=== PATIENT | male | born 1985 | race Caucasian/White ===

== ENCOUNTER 2020-07-19 21:44 | Emergency (ER) | payer OTHER ==
[2020-07-19 21:51] VITALS: BP 118/71; PULSE 60; TEMP 97.8; BMI 27.8
--- OUTSIDE RECORDS SUMMARY | 2020-07-19 22:27 | XMS ---
:1985 Author Organization [facility] Support Name Relationship Address Phone SAMIA HERNANDEZ Unavailable [place] [address] [place] [address] [place] [address] Re-disclosure Warning The records that you are about to access may contain information from federally- assisted alcohol or drug abuse programs. If such information is present, then the following federally mandated warning applies: This information has been disclosed to you from records protected by federal confidentiality rules (42 CFR part 2). The federal rules prohibit you from making any further disclosure of this information unless further disclosure is expressly permitted by the written consent of the person to whom it pertains or as otherwise permitted by 42 CFR part 2. A general authorization for the release of medical or other information is NOT sufficient for this purpose. The Federal rules restrict any use of the information to criminally investigate or prosecute any alcohol or drug abuse patient.The records that you are about to access may contain highly sensitive health information, the redisclosure of which is protected by Article 27-F of the [facility] Public Health law. If you continue you may haveaccess to information: Regarding HIV / AIDS; Provided by facilities licensed or operated by the [facility] Office of Mental Health; or Provided by the [facility] Office for People With Developmental Disabilities. If such information is present, then the following [facility] mandated warning applies: This information has been disclosed to you from confidential records which are protected by state law. State law prohibits you from making any further disclosure of this information without the specific written consent of the person to whom it pertains, or as otherwise permitted by law. Any unauthorized further disclosure in violation of state law may result in a fine or custodial sentence or both. A general authorization for the release of medical or other information is NOT sufficient authorization for further disclosure. Insurance Providers Payer name Policy type Policy ID Covered Covered democrat's Policy P jose / Coverage democrat ID relationship to [employer] Inf ormation type [employer] [id number] SP [id number] FIRST
--- NOTE | 2020-07-19 22:48 | PDOC ---
History of Present Illness - General Chief Complaint: Injury Stated Complaint: L THUMB LACERATION History Source: Patient Exam Limitations: No Limitations - History of Present Illness Initial Comments: 07/19/20 22:43 Patient is a 34-year-old male with history of tonsillectomy here with complaints of a laceration to his left thumb when he sliced himself with a sharp knife about 2039 today. States it would not stop bleeding and so he has come to the emergency room for evaluation. Tetanus is up-to-date. PMHX: as above PSOCHX: neg etoh, drug, cig ALL: NKDA GENERAL/CONSTITUTIONAL: [No fever or chills. No weakness. No weight change.] HEAD, EYES, EARS, NOSE AND THROAT: [No change in vision. No ear pain or discharge. No sore throat.] MUSCULOSKELETAL: [No joint or muscle swelling or pain. No neck or back pain.] SKIN AND BREASTS: [No rash or easy bruising.] NEUROLOGIC: [No headache, vertigo, loss of consciousness, or loss of sensation.] HEMATOLOGIC/LYMPHATIC: [No anemia, easy bleeding, or history of blood clots.] ALLERGIC/IMMUNOLOGIC: [No hives or skin allergy. No latex allergy.] GENERAL: [The patient is awake, alert, and fully oriented, in no acute distress.] HEAD: [Normal with no signs of trauma.] EXTREMITIES: [Normal range of motion of the left thumb, 2 cm laceration to the dorsal aspect of the left thumb, no tendon involvement, ] NEUROLOGICAL: [Cranial nerves II through XII grossly intact. Normal speech, normal gait.] PSYCH: [Normal mood, normal affect.] SKIN: [2 cm laceration left thumb, warm, Dry, normal turgor, no rashes or lesions noted.] Past History - Medical History Allergies/Adverse Reactions: Allergies Allergy/AdvReac Type Severity Reaction Status Date / Time No Known Allergies Allergy Verified 07/19/20 21:52 COPD: No - Psycho-Social/Smoking History Smoking History: Never smoked - Substance Abuse Hx (Audit-C & DAST Scrn) How often the patient has a drink containing alcohol: Never Score: In Men: 4 or > Positive; In Women: 3 or > Positive: 0 Screen Result (Pos requires Nsg. Audit-10AR): Negative In the last yr the pt used illegal drug/Rx for NonMed reason: No Score: Yes response is considered Positive: 0 Screen Result (Positive result requires Nsg. DAST-10): Negative *Physical Exam - Vital Signs Last Vital Signs Temp Pulse Resp BP Pulse Ox 97.8 F 60 19 118/71 100 07/19/20 21:48 07/19/20 21:48 07/19/20 21:48 07/19/20 21:48 07/19/20 21:48 Medical Decision Making - Medical Decision Making 07/19/20 22:43 Patient is a 34-year-old male with history of tonsillectomy here with complaints of a laceration to his left thumb when he sliced himself with a sharp knife about 2039 today. States it would not stop bleeding and so he has come to the emergency room for evaluation. Tetanus is up-to-date. Laceration for suturing Tetanus not required. I discussed the physical exam findings, ancillary test results and final diagnoses with the patient. I answered all of the patient's questions. The roger ent was satisfied with the care received and felt comfortable with the discharge plan and treatment plan. The Patient agrees to follow up with the primary care physician within 24-72 hours. Discharge - Discharge Information Problems reviewed: Yes Clinical Impression/Diagnosis: Finger laceration Qualifiers: Encounter type: initial encounter Finger: thumb Damage to nail status: without damage Foreign body presence: without foreign body Laterality: left Qualified Code(s): S61.012A - Laceration without foreign body of left thumb without damage to nail, initial encounter Condition: Stable - Follow up/Referral - Patient Discharge Instructions Patient Printed Discharge Instructions: DI for Laceration Repair -- Finger Additional Instructions: Your Discharge Instructions: You must call primary care physician within 24 hours to arrange follow-up. Return to the Emergency Department with any new, persistent or worsening symptoms, for fever, chills, SOB, dizziness or any other concerning changes that may occur. Return to the emergency room in 48 hours for wound check and 10 days for suture removal. Do not soak in water, you may wash with soap and water then pat dry. - Post Discharge Activity Work/Back to School Note: Back to Work
== END 2020-07-19 22:56 | disposition home or self-care (01) ==
LOC: JERFT 21:44
DX: S61.012A Laceration without foreign body of left thumb without damage to nail, initial encounter (principal)
CPT/HCPCS: 99283-25

== ENCOUNTER 2020-07-29 18:44 | Emergency (ER) | payer OTHER ==
[2020-07-29 18:53] VITALS: BP 128/74; PULSE 78; TEMP 98.1; BMI 27.8
--- OUTSIDE RECORDS SUMMARY | 2020-07-29 18:57 | XMS ---
:1985 Author Organization [facility] Support Name Relationship Address Phone SAMIA HERNANDEZ Unavailable [place] [address] FRANK FREY [address] [place] [address] FRANK FREY Spouse [address] [place] [address] Re-disclosure Warning The records that you are [...] is protected by Article 27-F of the [facility] Public Health law. If you continue you may haveaccess to information: Regarding HIV / AIDS; Provided by facilities licensed or operated by the [facility] Office of Mental Health; or Provided by the [facility] Office for People With Developmental Disabilities. If such information is present, then the following [facility] mandated warning applies: This information has been [...] law may result in a fine or nursing home sentence or both. A general authorization for the release of medical or other information is NOT sufficient authorization for further disclosure. Insurance Providers Payer name Policy type Policy ID Covered Covered constitution party's Policy P jose / Coverage constitution party ID relationship to [employer] Inf ormation type [employer] [facility] [id number] FIRST
--- NOTE | 2020-07-29 19:05 | PDOC ---
History of Present Illness - General Chief Complaint: Suture/Staple Removal (other) Stated Complaint: SUTRE/STAPLE REMOVAL Time Seen by Provider: 07/29/20 18:51 History Source: Patient Exam Limitations: No Limitations - History of Present Illness Initial Comments: 07/29/20 19:03 Patient is a 34-year-old male who presents to the ED for left thumb suture removal. He states he had the sutures placed 10 days ago. He denies any complications. He has no complaints at this time. He states he had 5 sutures placed at that time. Past History - Medical History Allergies/Adverse Reactions: Allergies Allergy/AdvReac Type Severity Reaction Status Date / Time No Known Allergies Allergy Verified 07/19/20 21:52 COPD: No - Psycho-Social/Smoking History Smoking History: Never smoked - Substance Abuse Hx (Audit-C & DAST Scrn) How often the patient has a drink containing alcohol: Never Score: In Men: 4 or > Positive; In Women: 3 or > Positive: 0 Screen Result (Pos requires Nsg. Audit-10AR): Negative Review of Systems - Review of Systems Comments:: 07/29/20 19:03 - Review of Systems Able to Perform ROS?: Yes Constitutional: No: Fever, Chills, Loss of Appetite, Night Sweats, Weakness HEENTM: No: Eye Pain, Vision changes, Ear Pain, Throat Pain, Throat Swelling, Mouth Pain, Difficulty Swallowing Respiratory: No: Cough, Shortness of Breath, Wheezing, Sputum Production Cardiac (ROS): No: Chest Pain, Chest Tightness, Palpitations, Irregular Heart Beat, Edema ABD/GI: No: Nausea, Vomiting, Abdominal Pain, Diarrhea : No Dysuria, No Hematuria, No Frequency, No Urgency Musculoskeletal: No: Muscle Pain, Back Pain, Joint Pain, Muscle Weakness, Neck Pain Integumentary: No: Lesions, Rash; positive: Suture removal left thumb laceration Neurological: No: Headache, Numbness, Tingling, Weakness, Speech Difficulties *Physical Exam - Vital Signs Last Vital Signs Temp Pulse Resp BP Pulse Ox 98.1 F 78 20 128/74 100 07/29/20 18:49 07/29/20 18:49 07/29/20 18:49 07/29/20 18:49 07/29/20 18:49 - Physical Exam 07/29/20 19:03 - Physical Exam General Appearance: Nourished, Appropriately Dressed, No Distress Neck: Supple, No Lymphadenopathy (R), No Lymphadenopathy (L), No Rigidity, No Decreased range of motion Respiratory/Chest: Lungs Clear, Normal Breath Sounds. No Respiratory Distress, No Accessory Muscle Use Cardiovascular: Regular Rhythm, Regular Rate, S1, S2 Musculoskeletal: Normal Inspection. No Decreased Range of Motion Integumentary: Normal Color, Dry. No Rash; 5 sutures to the base of the left thumb on the dorsal aspect of the hand with evidence of laceration healing well. No sign of infection. No wound dehiscence. All sutures are intact. 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, Fully Oriented, Alert, Normal Mood/Affect, Normal Response Medical Decision Making - Medical Decision Making 07/29/20 19:04 Assessment: Patient is a 34-year-old male who presents to the ED for suture removal to the left thumb Plan: -5 sutures removed with an 11 blade scalpel without incident -Patient given wound care instructions and he understands and agrees with this treatment plan he is stable for discharge Discharge - Discharge Information Problems reviewed: Yes Clinical Impression/Diagnosis: Visit for suture removal Condition: Stable Disposition: HOME - Follow up/Referral - Patient Discharge Instructions Patient Printed Discharge Instructions: DI for Suture Removal Additional Instructions: Keep the wound clean and dry. Do not pick at the scab as this will cause the wound to reopen. - Post Discharge Activity
== END 2020-07-29 19:05 | disposition home or self-care (01) ==
LOC: JERFT 18:44
DX: Z48.02 Encounter for removal of sutures (principal)
CPT/HCPCS: 99281-25